=== PATIENT | male | born 2000 | race Caucasian/White ===

== ENCOUNTER 2023-10-18 02:29 | Emergency (ER) | payer OTHER ==
[~2023-10-18] VITALS: Ht 177.8 cm; Wt 81.0 kg
[2023-10-18 02:46] VITALS: O2SAT 99
[2023-10-18 09:15] VITALS: BP 130/85; PULSE 76; RESP 18; TEMP 97.9
== END 2023-10-18 10:24 | disposition home or self-care (01) ==
LOC: ER 02:29
DX: T74.21XA Adult sexual abuse, confirmed, initial encounter (principal); X58.XXXA Exposure to other specified factors, initial encounter; Y93.89 Activity, other specified; Y92.89 Other specified places as the place of occurrence of the external cause; Y99.8 Other external cause status
CPT/HCPCS: 99281